=== PATIENT | female | born 1995 | race Hispanic/Latino ===

== ENCOUNTER 2017-11-21 10:32 | Emergency (ER) | payer MEDICAID ==
[2017-11-21 11:03] LABS: APPEARANCE,URINE Clear (CLEAR); BILIRUBIN,URINE Negative (NEGATIVE); COLOR,URINE Yellow (YELLOW); GLUCOSE, URINE (UA) Negative (NEGATIVE); KETONES,URINE Negative (NEGATIVE); LEUKOCYTE ESTERASE ,URINE Small (NEGATIVE); NITRATE,URINE Negative (NEGATIVE); OCCULT BLOOD,URINE Moderate (NEGATIVE); PH,URINE 6.5 (5.0-8.0); PROTEIN,URINE Trace (NEGATIVE)
[2017-11-21 11:07] LABS: HCG,QUAL RESULT NEGATIVE (NEGATIVE)
[2017-11-21 11:22] LABS: BACTERIA,URINE Moderate /HPF (None Seen)
== END 2017-11-21 12:07 | disposition home or self-care (01) ==
LOC: EDH 10:32
DX: N83.209 Unspecified ovarian cyst, unspecified side (principal); Z72.0 Tobacco use
CPT/HCPCS: 76856; 81001; 81025